=== PATIENT | male | born 1985 | race Caucasian/White ===

== ENCOUNTER 2024-09-24 11:28 | Emergency (ER) | payer OTHER ==
[~2024-09-24] VITALS: Ht 175.3 cm; Wt 87.0 kg
[~2024-09-24 11:28] MED LIST: ADVIL200 MG PO; ALBUTEROL2.5 MG/3 M INH; ALEVE220 MG PO; ASPIRIN EC81 MG PO; AZITHROMYCIN250 MG PO; CHERATUSSIN AC118 ML PO; CLINDAMYCIN HC300 MG PO; DOXYCYCLINE HY100 MG PO; HYDROCODON-ACE1 EA10 PO; HYDROCODON-ACE1 EAC8 PO; IBUPROFEN400 MG PO; IBUPROFEN600 MG PO; KEFLEX500 MG PO; MELOXICAM7.5 MG PO; NAPROXEN500 MG PO; NORCO 5-325 TA1 EACH PO; OXYCODONE-ACET1 EAC1 PO; PERCOCET 5-3251 EACH PO; ROBAXIN-750750 MG PO; TRAMADOL HCL50 MG PO; TYLENOL EXTRA500 MG PO; TYLENOL325 MG PO
--- OUTSIDE RECORDS SUMMARY | 2024-09-24 11:29 | XMS ---
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 Current FAMILY PHONE: [phone] RUFINA BARBOSA Nurse Practitioner: Family Current PHONE: Unknown Mireille has no Care Guidelines for this patient. E.D. VISIT COUNT (12 MO.) 3 Kenya Ospina 1 ELIER Dykes TOTAL 4 NOTE: Visits indicate total known visits. ED/UCC VISIT TRACKING (12 MO.) 09/24/2024 11:28 ELIER Barnes [place] TYPE: Emergency COMPLAINT: - GENTIAL PROBLEM 04/24/2024 18:39 Kenya Ospina TYPE: Emergency DIAGNOSES: - Sprain of ligaments of lumbar spine, initial encounter - Back Injury 01/19/2024 11:46 Kenya Ospina TYPE: Emergency DIAGNOSES: - Cellulitis of buttock - Wound Check 11/12/2023 16:41 Kenya Ospina TYPE: Emergency DIAGNOSES: - Lumbago with sciatica, left side - Back Pain INPATIENT VISIT TRACKING (12 MO.) No inpatient visits to display in this time frame [email or web address]
[2024-09-24] MEDS ORDERED: IBUPROFEN 600 MG TAB PO ONE (11:45)
[2024-09-24] MEDS ORDERED: OXYCODONE/APAP 5/325 TAB PO ONE (11:45)
[2024-09-24] MEDS ORDERED: ONDANSETRON 4 MG TAB ODT SL ONE (11:45)
[2024-09-24 11:57] LABS: BASOPHILS 0.5 % (0.2-1.2); EOSINOPHILS 0.4 % (0.8-7.0); LYMPHOCYTES 21.5 % (21.8-53.1); MCH 28.9 PG (25.7-32.2); MCHC 34.2 g/dL (32.3-36.5); MCV 84.5 fL (79.0-92.2); MONOCYTES 6.4 % (5.3-12.2); NEUTROPHILS 70.7 % (34.0-67.9); RBC 5.30 M/uL (4.63-6.08)
[2024-09-24 12:12] LABS: ALT (SGPT) 44.0 U/L (14-59); AST (SGOT) 21.0 U/L (15-37); GLOMERULAR FILTRATION RATE,EST 112.0 mL/min (>60); PROTEIN, TOTAL 7.6 g/dL (6.4-8.2); UREA NITROGEN 12.0 mg/dL (7-18)
[2024-09-24] MEDS ORDERED: DOXYCYCLINE HY100 MG PO (13:22)
[2024-09-24] MEDS ORDERED: CEFTRIAXONE SODIUM 2 GM VIAL IM ONE (13:30)
[2024-09-24] MEDS ORDERED: DOXYCYCLINE HYCLATE 100 MG CAP PO ONE (13:30)
[2024-09-24 13:39] LABS: BLOOD/HGB, URINE NEGATIVE (Negative); KETONE, URINE NEGATIVE (Negative); LEUK ESTERASE, URINE NEGATIVE (negative); NITRITE, URINE NEGATIVE (negative)
[2024-09-24 14:12] VITALS: BP 128/83
[2024-09-24 15:06] LABS: N. GONORRRHOEAE BY PCR NOT DETECTED (NOT DETECT)
== END 2024-09-24 14:13 | disposition home or self-care (01) ==
LOC: ED 11:28
PROVIDERS: Emergency Medicine
DX: N45.1 Epididymitis (principal); F17.200 Nicotine dependence, unspecified, uncomplicated
CPT/HCPCS: 36415; 76870; 80053; 81003; 85025; 96372; 99284; A9270; J0696